=== PATIENT | female | born 1975 ===

== ENCOUNTER 2017-10-25 01:20 | Observation (INO) | payer MEDICAID, OTHER ==
--- NOTE | 2017-10-25 01:36 | C.PDOC ---
History Of Present Illness 42 year old female with PMHx of vertigo presents to the ED for evaluation of a sudden onset of dizziness since last night. Patient reports symptoms feel similar to previous vertigo episodes described as a spinning sensation. Patient also reports having several episodes of vomiting. Patient took her antivert at home but was unable to keep it down. Patient c/o of mild headache but denies blurry vision, weakness, numbness, trauma, injury,fall, CP, palpitations, SOB. Time Seen by Provider: 10/25/17 01:32 Chief Complaint (Nursing): Dizziness/Lightheaded History Per: Patient History/Exam Limitations: no limitations Onset/Duration Of Symptoms: Hrs (few), Persistent Current Symptoms Are (Timing): Still Present Associated Symptoms Preceding Syncopal Episode: Vertigo Worse With Change In Head Position Seizure Or Post-ictal Symptoms: None Possible Causative Factor(s): Vertigo Fall Associated With With Symptoms: No Severity: None Recent travel outside of the [place]: No Additional History Per: Patient - Symptoms Of CVA Associated Symptoms: denies: Impaired Speech, Seizure Activity, Decreased Ability To Walk Recent Aspirin Use: No Current Coumadin Use?: No Recent Head Trauma: No Past Medical History Reviewed: Historical Data, Nursing Documentation, Vital Signs Vital Signs: Last Vital Signs Temp 98.4 F 10/25/17 01:36 Pulse 90 10/25/17 06:54 Resp 16 10/25/17 06:54 BP 124/61 10/25/17 06:54 Pulse Ox 98 10/25/17 06:54 - Medical History PMH: HTN Other PMH: vertigo Surgical History: No Surg Hx Family History: States: Unknown Family Hx - Social History Hx Alcohol Use: No Hx Substance Use: No Review Of Systems Constitutional: Negative for: Fever, Chills Eyes: Negative for: Vision Change Cardiovascular: Negative for: Chest Pain, Palpitations Respiratory: Negative for: Shortness of Breath Gastrointestinal: Positive for: Vomiting Skin: Negative for: Rash Neurological: Positive for: Dizziness. Negative for: Headache Physical Exam - Physical Exam Appears: Non-toxic, No Acute Distress Skin: Normal Color, Warm, Dry Head: Atraumatic, Normacephalic, Other (reproducible dizziness with head movements ) Eye(s): bilateral: Normal Inspection, Other (no nystagmus ) Nose: No Discharge Oral Mucosa: Moist Neck: Normal ROM, Supple Chest: Symmetrical Cardiovascular: Rhythm Regular, No Murmur Respiratory: Normal Breath Sounds, No Rales, No Rhonchi, No Wheezing Gastrointestinal/Abdominal: Soft, No Tenderness, No Guarding, No Rebound Extremity: Normal ROM, No Tenderness, No Swelling Neurological/Psych: Oriented x3, Normal Speech, Normal Motor, Normal Sensation Gait: Steady ED Course And Treatment - Laboratory Results Result Diagrams: 10/25/17 01:59 10/25/17 01:59 ECG: Interpreted By Me, Viewed By Me ECG Rhythm: Sinus Rhythm (80), Nonspecific Changes ECG Interpretation: No Acute Changes Interpretation Of ECG: NSR at 80 O2 Sat by Pulse Oximetry: 98 (ON RA) Pulse Ox Interpretation: Normal - CT Scan/US CT Head Other Rad Studies (CT/US): Read By Radiologist, Radiology Report Reviewed CT/US Interpretation: IMPRESSION: 1. Serpentine hyperdensity within left parietal region, indeterminate significance. Subarachnoid. hemorrhage not entirely excluded. Compare with prior examinations if available. Thank you for allowing us to participate in the care of your patient. Dictated and Authenticated by: Cuate Zurita MD. 10/25/2017 4:49 AM Eastern Time ([place] & [place]) Progress Note: Plan: - Labs. - EKG. - Antivert 50 mg PO. - IV fluids. - Zofran 4 mg IVP. Patient is currently sleeping with stable vitals. On reeval pt is unable to tolerate PO fluids and recurring vertigo when sitting. zofran IV ( 2nd dose) and Head CT ordered. Spoke with Dr Ovalles- neurosurg, advised MRI of brain and can be consulted after. Case presented to Dr Munoz for admission Reevaluation Time: 05:20 Reassessment Condition: Unchanged Disposition - Disposition Disposition Time: 07:19 Condition: STABLE - Clinical Impression Clinical Impression: Dizziness, Intractable vomiting - PA / COURT ADMINISTRATOR / Resident Statement MD/DO has reviewed & agrees with the documentation as recorded. - Scribe Statement The provider has reviewed the documentation as recorded by the Scribe Naresh Huynh All medical record entries made by the Scribe were at my direction and personally dictated by me. I have reviewed the chart and agree that the record accurately reflects my personal performance of the history, physical exam, medical decision making, and the department course for this patient. I have also personally directed, reviewed, and agree with the discharge instructions and disposition.
[2017-10-25] MEDS ORDERED: Sodium Chloride 0.9% 1,000 ML IV ONE (01:45)
[2017-10-25] MEDS ORDERED: Sodium Chloride 0.9% 1,000 ML ONE (01:53)
[2017-10-25 02:04] LABS: BASO % 0.3 % (0.0-2.0); EOS # 0.1 K/uL (0.0-0.7); HEMOGLOBIN 11.8 g/dL (11.0-16.0); LYMPH # 1.6 K/uL (1.0-4.3); LYMPH % 12.8 % (20.0-40.0); MEAN CELL VOLUME 87.5 fL (81.0-99.0); MEAN CORPUSCULAR HEMOGLOBIN 29.4 pg (27.0-31.0); MEAN CORPUSCULAR HGB CONC 33.6 g/dL (33.0-37.0); MEAN PLATELET VOLUME 8.4 fL (7.2-11.7); MONO # 0.3 K/uL (0.0-0.8); MONO % 2.5 % (0.0-10.0); NEUT # 10.1 K/uL (1.8-7.0); NEUT % 83.4 % (50.0-75.0); RED CELL DISTRIBUTION WIDTH 13.7 % (11.5-14.5); WHITE BLOOD COUNT 12.2 K/uL (4.8-10.8)
[2017-10-25 02:17] LABS: ALB/GLOB RATIO 1.1 (1.0-2.1); ALBUMIN 4.1 g/dL (3.5-5.0); ALT/SGPT 23 U/L (9-52); AST/SGOT 20 U/L (14-36); BLOOD UREA NITROGEN 14 mg/dL (7-17); CALCIUM 9.5 mg/dl (8.6-10.4); GFR AFRICAN-AMERICAN > 60; GFR NON-AFRICAN AMERICAN > 60
--- NOTE | 2017-10-25 04:49 | CT ---
EXAM: CT Head Without Intravenous Contrast CLINICAL HISTORY: 42 years old, female; Signs and symptoms; Dizziness; Additional info: Dizziness, vomiting TECHNIQUE: Axial computed tomography images of the head/brain without intravenous contrast. All CT scans at this facility use one or more dose reduction techniques, viz.: automated exposure control; ma/kV adjustment per patient size (including targeted exams where dose is matched to indication; i.e. head); or iterative reconstruction technique. Coronal and sagittal reformatted images were created and reviewed. COMPARISON: No relevant prior studies available. FINDINGS: Limitations: Streak artifact - mild. Brain: Serpentine hyperdensity within left parietal region (coronal image [id number]). No mass. No definite edema. Ventricles: No hydrocephalus. Bones/joints: No acute fracture. Soft tissues: Unremarkable. Sinuses: No acute sinusitis. Mastoid air cells: No mastoid effusion. Orbits: Unremarkable as visualized. IMPRESSION: 1. Serpentine hyperdensity within left parietal region, indeterminate significance. Subarachnoid hemorrhage not entirely excluded. Compare with prior examinations if available.
[2017-10-25] MEDS ORDERED: Glucagon Recombinant 1 mg Inj IM PRN (09:19)
[2017-10-25] MEDS ORDERED: Dextrose 50% SYRINGE Inj (50 ml) IV PRN (09:19)
--- NOTE | 2017-10-25 09:26 | CP.PCM.HP ---
<Jacquie FranceSaima - Last Filed: 10/25/17 16:45> History of Present Illness - History of Present Illness History of Present Illness: CC: dizziness and vomiting 42 year old Martiniquais female with past medical history of vertigo, type 2 diabetes, hypothyroidism, iron deficiency anemia, and hypertension presents to the ER with dizziness. Patient states yesterday afternoon she had a bitemporal and occipital headache. She took two advil and the headache went away. Later that day, the patient states she became dizzy beginning at 10:30 pm after she ate dinner. Patient states she was sitting watching TV when the dizziness started. She does not note any inciting events, falls, or trauma. Patient states she then began to vomit which consisted at first of her food and later progressed to "just yellow." In the end the patient states she vomited 13 times since 1030 pm last night which concerned her and her causing them to come to the ER. Patient had been prescribed antivert by her primary care physician, Dr. Navi Sears, over a year ago. Patient took one pill during the dizzy spell but could not keep the pill down due to recurrent emesis. Patient states sudden movements and standing up makes the dizziness worse, while laying down and eating food makes the dizziness better. Patient's first episode of vertigo occured 13 years ago after second child . Patient states dizzy spells are fairly common for her occuring "once a month." states patient usually vomits once or twice, then eats something and goes to sleep and resulting in the patients return to baseline in the morning. Patient denies neck stiffness, back pain, numbness/tingling, or loss of consciousness. Patient states she drinks only 1 cup of water each day. Although patient and who is bedside spoke Syrian, obtaining a history was difficult due to patient being a poor historian. PMD: Dr. 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 Medications: antivert 25 mg po PRN, levothyroxine 100mcg po morning, glimepride 4mg po morning, sitagliptin 100mg po HS, Iron supplement 10mg BID after breakfast and dinner, propanolol 60 mg po HS, losartan 25mg po morning, protonix 40mg po morning, vitamin d D3 5000 unit PO morning Social: patient denies current or past tobacco use, alcohol use, or recreational drug use. Patient lives with her and child. 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 FDLMP: october 08 2017 Present on Admission - Present on Admission Any Indicators Present on Admission: No History of DVT/PE: No History of Uncontrolled Diabetes: No Urinary Catheter: No Decubitus Ulcer Present: No Review of Systems - Constitutional Constitutional: absent: Anorexia, Chills, Fever - EENT Eyes: Requires Corrective Lenses. absent: Blurred Vision, Change in Vision, Diplopia Ears: Dizziness. absent: Decreased Hearing, Ear Pain, Tinnitus, Abnormal Hearing Nose/Mouth/Throat: absent: Nasal Congestion, Sore Throat, Neck Pain - Cardiovascular Cardiovascular: Palpitations. absent: Chest Pain, Dyspnea, Leg Edema - Respiratory Respiratory: absent: Cough, Dyspnea, Dyspnea on Exertion, Wheezing, Stridor, Chest Congestion - Gastrointestinal Gastrointestinal: absent: Abdominal Pain, Constipation, Diarrhea, Melena, Nausea , Vomiting - Genitourinary Genitourinary: absent: Dysuria, Flank Pain, Hematuria, Urinary Frequency, Urinary Urgency - Musculoskeletal Musculoskeletal: absent: Abnormal Gait, Muscle Weakness, Neck Pain, Numbness, Tingling - Integumentary Integumentary: absent: Rash - Neurological Neurological: Dizziness, Headaches, Vertigo. absent: Numbness, Frequent Falls, Loss of Vision, Syncope, Weakness - Psychiatric Psychiatric: absent: Confusion - Hematologic/Lymphatic Hematologic: absent: Easy Bleeding, Easy Bruising Past Patient History - Past Social History Smoking Status: Never Smoked - CARDIAC Hx Hypertension: Yes - NEUROLOGICAL Hx Dizziness: Yes - ENDOCRINE/METABOLIC Hx Diabetes Mellitus Type 2: Yes - PSYCHIATRIC Hx Substance Use: No Meds Allergies/Adverse Reactions: Allergies Allergy/AdvReac Type Severity Reaction Status Date / Time No Known Allergies Allergy Verified 10/25/17 01:30 Physical Exam - Constitutional Appears: Non-toxic, No Acute Distress - Head Exam Head Exam: ATRAUMATIC, NORMAL INSPECTION, NORMOCEPHALIC - Eye Exam Eye Exam: EOMI, Normal appearance, PERRL Pupil Exam: NORMAL ACCOMODATION, PERRL Additional comments: no blood in vitreous humor - ENT Exam ENT Exam: Mucous Membranes Moist, Normal Oropharynx - Neck Exam Neck exam: Positive for: Normal Inspection. Negative for: Lymphadenopathy, Meningismus, Tenderness, Thyromegaly - Respiratory Exam Respiratory Exam: Clear to Auscultation Bilateral, NORMAL BREATHING PATTERN. absent: Rales, Rhonchi, Wheezes, Respiratory Distress, Stridor - Cardiovascular Exam Cardiovascular Exam: REGULAR RHYTHM, RRR, +S1, +S2, Systolic Murmur. absent: Diastolic murmur, Gallop, Rubs Additional comments: 2/6 systolic ejection murmur - GI/Abdominal Exam GI & Abdominal Exam: Normal Bowel Sounds, Soft. absent: Distended, Firm, Guarding, Tenderness - Extremities Exam Extremities exam: Positive for: full ROM, normal inspection. Negative for: pedal edema, tenderness Additional comments: decreased strength in LUE 4/5. pain to palpation of lateral aspect of thumb on left hand - Back Exam Back exam: NORMAL INSPECTION - Neurological Exam Neurological exam: Alert, CN II-XII Intact, Oriented x3 - Expanded Neurological Exam Expanded Patient oriented to: person, place, time Speech: Fluid Speech Cranial nerves: EOM's Intact: Normal, Facial Palsey w/Forehead Movement: Normal , Facial Palsey w/o Forehead Movement: Normal, Facial Sensation: Normal Ataxia: No Cerebellar Function: Romberg: Normal Upper motor neuron: Babinski Sign: Normal, Pronator Drift: Normal, Sensory Extinction: Normal Neuro motor strength exam: Left Upper Extremity: 4, Right Upper Extremity: 5, Left Lower Extremity: 5, Right Lower Extremity: 5 DTR: Achilles Tendon Left: 1+, Achilles Tendon Right: 1+, Bicep Left: 1+, Bicep Right: 1+, Patellar Left: 1+, Patellar Right: 1+ Coma Scale Eye Opening: SPONTANEOUS Coma Scale Motor Response: OBEYS COMMANDS Coma Scale Verbal: Oriented Coma Scale Total: 15 - Psychiatric Exam Psychiatric exam: Normal Affect, Normal Mood - Skin Skin Exam: Intact, Normal Color, Warm Results - Vital Signs Recent Vital Signs: Last Vital Signs Temp 98 F 10/25/17 08:23 Pulse 76 04/16/18 08:23 Resp 20 10/25/17 08:23 BP 107/68 10/25/17 08:23 Pulse Ox 98 10/25/17 08:23 - Labs Result Diagrams: 10/25/17 01:59 10/25/17 01:59 Labs: Laboratory Results - last 24 hr 10/25/17 10/25/17 10/25/17 01:28 01:59 01:59 WBC 12.2 H RBC 4.00 Hgb 11.8 Hct 35.1 MCV 87.5 MCH 29.4 MCHC 33.6 RDW 13.7 Plt Count 272 MPV 8.4 Neut % (Auto) 83.4 H Lymph % (Auto) 12.8 L [place] % (Auto) 2.5 Eos % (Auto) 1.0 Baso % (Auto) 0.3 Neut # (Auto) 10.1 H Lymph # (Auto) 1.6 [place] # (Auto) 0.3 Eos # (Auto) 0.1 Baso # (Auto) 0.0 Sodium 137 Potassium 4.4 Chloride 101 Carbon Dioxide 23 Anion Gap 18 BUN 14 Creatinine 0.5 L Est GFR ( Amer) > 60 Est GFR (Non-Af Amer) > 60 POC Glucose (mg/dL) 209 H Random Glucose 220 H Calcium 9.5 Total Bilirubin 0.5 AST 20 ALT 23 Alkaline Phosphatase 75 Total Protein 7.7 Albumin 4.1 Globulin 3.6 Albumin/Globulin Ratio 1.1 10/25/17 07:26 WBC RBC Hgb Hct MCV MCH MCHC RDW Plt Count MPV Neut % (Auto) Lymph % (Auto) [place] % (Auto) Eos % (Auto) Baso % (Auto) Neut # (Auto) Lymph # (Auto) [place] # (Auto) Eos # (Auto) Baso # (Auto) Sodium Potassium Chloride Carbon Dioxide Anion Gap BUN Creatinine Est GFR ( Amer) Est GFR (Non-Af Amer) POC Glucose (mg/dL) 130 H Random Glucose Calcium Total Bilirubin AST ALT Alkaline Phosphatase Total Protein Albumin Globulin Albumin/Globulin Ratio Assessment & Plan - Assessment and Plan (Free Text) Assessment: Vertigo continue to monitor zofran 4mg q6h PT f/u RPR f/u ECHO R/O Subarachnoid Hemorrhage CT: serpentine hyperdensity within L parietal region, indeterminate significance repeat CT: questionable small venous angioma in the left parietal region. 2nd small venous angioma in the right posterior frontoparietal not excluded CTA head and neck: possible tortuous vessel versus a small aneurysm left MCA trifurcation. Suspect a small venous angiomas within the left posterior superior parietal and right posterior frontal regions. MRA of brain and pre- and post contrast MRI ordered as recommended for further evaluation neuro consulted, Dr. Diamond, help appreciated no meningeal signs pro BNP: 77.1 Leukocytosis with left shift 2/2 nausea/vomiting vitals and orthostatics q6h negative Flu DMII continue home medications: * Glimepiride 4mg po ACB * Januvia 100mg po daily insulin sliding scale- low accuchecks ACHS hypoglycemia protocol Hypothyroidism continue home medications: * Synthroid 100mcg daily TSH: 1.77 free T4: 1.65 HTN continue home medications: * Losartan 25mg po daily * Propranolol HCL 60mg po daily Iron deficiency * hold iron due to nausea/ vomiting iron: 95 TIBC: 366 %sat: 25 Ferritin 125 patient follows up with hematology, Dr. Renner- next appointment in December/January Prophylaxis DVT score of 1 for age, SCDs Protonix 40mg po daily Full liquid diet, moderate consistent, low sodium <Dwight De La Cruz - Last Filed: 10/25/17 18:36> Results - Vital Signs Recent Vital Signs: Last Vital Signs Temp 98.3 F 10/25/17 16:45 Pulse 76 10/25/17 16:45 Resp 20 10/25/17 16:45 BP 121/85 10/25/17 16:45 Pulse Ox 96 10/25/17 16:45 - Labs Result Diagrams: 10/25/17 01:59 10/25/17 01:59 Labs: Laboratory Results - last 24 hr 10/25/17 10/25/17 10/25/17 01:28 01:59 01:59 WBC 12.2 H RBC 4.00 Hgb 11.8 Hct 35.1 MCV 87.5 MCH 29.4 MCHC 33.6 RDW 13.7 Plt Count 272 MPV 8.4 Neut % (Auto) 83.4 H Lymph % (Auto) 12.8 L [place] % (Auto) 2.5 Eos % (Auto) 1.0 Baso % (Auto) 0.3 Neut # (Auto) 10.1 H Lymph # (Auto) 1.6 [place] # (Auto) 0.3 Eos # (Auto) 0.1 Baso # (Auto) 0.0 Sodium 137 Potassium 4.4 Chloride 101 Carbon Dioxide 23 Anion Gap 18 BUN 14 Creatinine 0.5 L Est GFR ( Amer) > 60 Est GFR (Non-Af Amer) > 60 POC Glucose (mg/dL) 209 H Random Glucose 220 H Calcium 9.5 Iron TIBC % Saturation Ferritin Total Bilirubin 0.5 AST 20 ALT 23 Alkaline Phosphatase 75 Troponin I NT-Pro-B Natriuret Pep Total Protein 7.7 Albumin 4.1 Globulin 3.6 Albumin/Globulin Ratio 1.1 Free T4 TSH 3rd Generation Urine HCG, Qual RPR Influenza Typ A,B (EIA) 10/25/17 10/25/17 10/25/17 07:26 09:05 10:01 WBC RBC Hgb Hct MCV MCH MCHC RDW Plt Count MPV Neut % (Auto) Lymph % (Auto) [place] % (Auto) Eos % (Auto) Baso % (Auto) Neut # (Auto) Lymph # (Auto) [place] # (Auto) Eos # (Auto) Baso # (Auto) Sodium Potassium Chloride Carbon Dioxide Anion Gap BUN Creatinine Est GFR ( Amer) Est GFR (Non-Af Amer) POC Glucose (mg/dL) 130 H Random Glucose Calcium Iron TIBC % Saturation Ferritin 125.0 Total Bilirubin AST ALT Alkaline Phosphatase Troponin I < 0.0120 NT-Pro-B Natriuret Pep 77.1 Total Protein Albumin Globulin Albumin/Globulin Ratio Free T4 TSH 3rd Generation 1.77 Urine HCG, Qual RPR Influenza Typ A,B (EIA) Negative for flu a/b 10/25/17 10/25/17 10/25/17 10:01 10:01 10:01 WBC RBC Hgb Hct MCV MCH MCHC RDW Plt Count MPV Neut % (Auto) Lymph % (Auto) [place] % (Auto) Eos % (Auto) Baso % (Auto) Neut # (Auto) Lymph # (Auto) [place] # (Auto) Eos # (Auto) Baso # (Auto) Sodium Potassium Chloride Carbon Dioxide Anion Gap BUN Creatinine Est GFR ( Amer) Est GFR (Non-Af Amer) POC Glucose (mg/dL) Random Glucose Calcium Iron 95 TIBC 372 366 % Saturation 26 25 Ferritin Total Bilirubin AST ALT Alkaline Phosphatase Troponin I NT-Pro-B Natriuret Pep Total Protein Albumin Globulin Albumin/Globulin Ratio Free T4 1.65 TSH 3rd Generation Urine HCG, Qual RPR Influenza Typ A,B (EIA) 10/25/17 10/25/17 10/25/17 10:01 11:03 11:09 WBC RBC Hgb Hct MCV MCH MCHC RDW Plt Count MPV Neut % (Auto) Lymph % (Auto) [place] % (Auto) Eos % (Auto) Baso % (Auto) Neut # (Auto) Lymph # (Auto) [place] # (Auto) Eos # (Auto) Baso # (Auto) Sodium Potassium Chloride Carbon Dioxide Anion Gap BUN Creatinine Est GFR ( Amer) Est GFR (Non-Af Amer) POC Glucose (mg/dL) 141 H Random Glucose Calcium Iron TIBC % Saturation Ferritin Total Bilirubin AST ALT Alkaline Phosphatase Troponin I NT-Pro-B Natriuret Pep Total Protein Albumin Globulin Albumin/Globulin Ratio Free T4 TSH 3rd Generation Urine HCG, Qual Negative RPR Nonreactive Influenza Typ A,B (EIA) Attending/Attestation - Attestation I have personally seen and examined this patient.: Yes I have fully participated in the care of the patient.: Yes I have reviewed all pertinent clinical information: Yes Notes (Text): 10/25/17 18:33 Patient was seen and examined shortly after resident. History, physical, assessment and plan were gone over with the resident. Please note my neurology exam was uremarkable: 5/5 strength bilateral UE and LE 2/4/ DTR bilateral UE and LE Rhomberg normal Babinski normal Fungoscopic exam (limited by no dilating agent) was normal F/U MRI Brain pre and post and MRA without contrast F/U 2D Echocardiogram Dwight De La Cruz D.O.
[2017-10-25] MEDS ORDERED: Propranolol 60 mg ER Cap PO SCH ×2 (10:00→10:34)
[2017-10-25] MEDS: Sodium Chloride 0.9% 1,000 ML IV SCH ×2 (10:20→22:01)
[2017-10-25] MEDS: Levothyroxine 100 MCG TAB PO SCH (10:20)
[2017-10-25] MEDS: Pantoprazole 40 mg EC Tab PO SCH (10:20)
[2017-10-25 10:25] LABS: IRON 95 ug/dL (37-170)
[2017-10-25 10:33] LABS: % IRON SATURATION 26 (20-55); TOTAL IRON BINDING CAPACITY 372 ug/dL (250-450)
[2017-10-25 10:34] LABS: % IRON SATURATION 25 (20-55); TOTAL IRON BINDING CAPACITY 366 ug/dL (250-450)
[2017-10-25 10:42] LABS: B-TYPE NATRIURETIC PEPTIDE 77.1 pg/mL (0-450)
--- NOTE | 2017-10-25 11:12 | CP.PCM.PN ---
Subjective - Date & Time of Evaluation Date of Evaluation: 10/25/17 Time of Evaluation: 11:11 - Subjective Subjective: if mri shows definitive lesion put official consult in Objective - Vital Signs/Intake and Output Vital Signs (last 24 hours): Temp Pulse Resp BP Pulse Ox 98 F 76 20 107/68 98 10/25/17 08:23 10/25/17 08:23 10/25/17 08:23 10/25/17 08:23 10/25/17 08:23 - Medications Medications: Current Medications Dextrose (Dextrose 50% Inj) 0 ml IV STAT PRN; Protocol PRN Reason: Hypoglycemia Protocol Dextrose (Glutose 15) 0 gm PO ONCE PRN; Protocol PRN Reason: Hypoglycemia Protocol Glimepiride (Amaryl) 4 mg PO ACB [facility] Last Admin: 10/25/17 10:20 Dose: 4 mg Glucagon (Glucagen Diagnostic Kit) 0 mg IM STAT PRN; Protocol PRN Reason: Hypoglycemia Protocol Dextrose (Dextrose 5% In Water 1000 Ml) 1,000 mls @ 0 mls/hr IV .Q0M PRN; Protocol; Per Protocol PRN Reason: Hypoglycemia Protocol Sodium Chloride (Sodium Chloride 0.9%) 1,000 mls @ 75 mls/hr IV .[id number] [facility] Last Admin: 10/25/17 10:20 Dose: 75 mls/hr Insulin Human Regular (Novolin R) 0 unit SC ACHS [facility] PRN Reason: Protocol Levothyroxine Sodium (Synthroid) 100 mcg PO DAILY@0630 [facility] Last Admin: 10/25/17 10:20 Dose: 100 mcg Losartan Potassium (Cozaar) 25 mg PO DAILY@1400 [facility] Ondansetron HCl (Zofran Inj) 4 mg IVP Q6H [facility] Last Admin: 10/25/17 10:36 Dose: 4 mg Pantoprazole Sodium (Protonix Ec Tab) 40 mg PO DAILY [facility] Last Admin: 10/25/17 10:20 Dose: 40 mg Pneumococcal Polyvalent Vaccine (Pneumovax 23 Vaccine) 0.5 ml IM .ONCE ONE Stop: 10/27/17 10:01 Propranolol HCl (Inderal La) 60 mg PO DAILY [facility] Sitagliptin Phosphate (Januvia) 100 mg PO DAILY [facility] Last Admin: 10/25/17 10:20 Dose: 100 mg - Labs Labs: 10/25/17 01:59 10/25/17 01:59
[2017-10-25] MEDS ORDERED: Iodixanol 320 MG/ML 100 ML BOTTLE IV ONE (11:46)
[2017-10-25] MEDS: (Novolin R) Insulin Human Regular 100 units/ml vial SC SCH ×3 (12:30→21:05)
--- NOTE | 2017-10-25 13:27 | CT ---
PROCEDURE: CT HEAD WITHOUT CONTRAST. HISTORY: Dizziness and vomiting. Rule out subarachnoid hemorrhage COMPARISON: Comparison made with prior study dated 10/25/2017 at 0425 hours. Comparison also made with prior CT scan of the brain dated 02/17/2014 TECHNIQUE: Axial computed tomography images were obtained through the head/brain without intravenous contrast. Radiation dose: Total exam DLP = 1026.68 mGy-cm. This CT exam was performed using one or more of the following dose reduction techniques: Automated exposure control, adjustment of the mA and/or kV according to patient size, and/or use of iterative reconstruction technique. FINDINGS: HEMORRHAGE: Re- demonstrated is a serpentine focus of increased attenuation in the left parietal subcortical region near the vertex could represent a venous angioma. . There is another somewhat serpiginous focus of increased attenuation in the right posterior frontal subcortical region that may represent cortical draining vein however a 2nd venous angioma not excluded. No definitive CT evidence of acute parenchymal, subarachnoid or extra-axial hemorrhage. BRAIN: No mass effect or edema. No atrophy or chronic microvascular ischemic changes. VENTRICLES: No obstructive hydrocephalus. CALVARIUM: There are no acute calvarial fractures. PARANASAL SINUSES: Unremarkable as visualized. No significant inflammatory changes. MASTOID AIR CELLS: Unremarkable as visualized. No inflammatory changes. OTHER FINDINGS: None. IMPRESSION: Questionable small venous angioma in the left parietal region. . A 2nd small venous angioma in the right posterior frontoparietal not excluded as detailed above. Followup pre and post-contrast MRI of the recommended.
--- NOTE | 2017-10-25 13:33 | CT ---
PROCEDURE: CT Angiography of the neck and brain dated 10/25/2017. HISTORY: Dizziness and vomiting. COMPARISON: Comparison made with concurrent CT scan brain TECHNIQUE: Contiguous helical/transaxial images of the neck and brain were obtained from the level of the skull-base to the superior mediastinum in the arteriographic phase of enhancement. Coronal and sagittal reformats or also generated. IV contrast dose: 100 cc Visipaque 320 Radiation Dose - DLP: 584.76 mGy-cm This CT exam was performed using one or more of the following dose reduction techniques: Automated exposure control, adjustment of the mA and/or kV according to patient size, and/or use of iterative reconstruction technique. . FINDINGS: The visualized portions of the thoracic aorta are widely patent with no evidence of occlusion. Some minor partially calcified atherosclerotic plaque seen along the left inferolateral margin of the transverse portion of the aortic arch. Right brachiocephalic and left common carotid artery arise from a common trunk. The common carotid arteries, carotid bifurcations and internal carotid arteries including the petrous cavernous and supraclinoid segments widely patent without evidence of occlusion dissection or significant stenosis. Both vertebral arteries are patent throughout left-sided which is slightly larger in caliber/more dominant than the right side with no evidence of occlusion, dissection or significant stenosis. Basilar artery patent. The visualized major branches of the [place] of [place] are patent with no occlusion. The distal anterior middle and posterior cerebral artery branches are widely patent and relatively symmetric. Note is made however of what could represent either a tortuous branch vessel in the left lateral fissure at the level of the left MCA trifurcation versus a tiny approximately 3 8 mm aneurysm. . Previously suspected small venous angioma left posterior parietal region and possibly a 2nd in the right posterior frontal subcortical region not appreciated on this study however a post-contrast MRI as indicated above the should suffice to confirm or exclude the presence of small venous angiomas. Recommend MRA of the brain and pre and post-contrast MRI of the brain for further evaluation. IMPRESSION: Possible tortuous vessel versus a small aneurysm left MCA trifurcation. Suspect a small venous angiomas within the left posterior superior parietal and right posterior frontal regions. Followup of MRA of the brain and pre and post-contrast MRI of the brain recommended for further evaluation. Findings discussed with Dr. De La Cruz at approximately 1:30 p.m. with written down and read back verification.
[2017-10-25] MEDS ORDERED: Gadodiamide 287 MG/ML VIAL (15ML) IV ONE (16:13)
--- NOTE | 2017-10-25 17:44 | MRI ---
PROCEDURE: MR Angiography of the neck without contrast HISTORY: Rule out aneurysm COMPARISON: Correlation made with CTA of the neck and brain earlier same day TECHNIQUE: 3D [id number] angiography of the neck was performed. Rotating maximum intensity projection images of the cervical carotid and vertebral arteries were generated. The origins of the common carotid arteries were not visualized, which is a limitation inherent to the non-contrast time of flight technique. FINDINGS: RIGHT CAROTID ARTERIES: Common Carotid Artery: Normal. Carotid Bifurcation: Normal. Internal Carotid Artery:Normal. External Carotid Artery (proximal branches): Normal. LEFT CAROTID ARTERIES: Common Carotid Artery: Normal. Carotid Bifurcation: Normal. Internal Carotid Artery:Normal. External Carotid Artery (proximal branches): Normal. VERTEBRAL ARTERIES: The right left vertebral arteries are patent throughout all. There is some minimal asymmetry of the vertebral arteries left-sided which is slightly larger in caliber/more dominant than the right side. OTHER FINDINGS: None. IMPRESSION: Normal MR Angiography of the neck.
--- NOTE | 2017-10-25 18:35 | MRI ---
PROCEDURE: MRI of the brain dated 10/25/2017. HISTORY: Rule out aneurysm. COMPARISON: Comparison made with prior CT scan of the brain earlier same day. TECHNIQUE: Multiplanar, multisequence MR images of the brain were obtained with and without intravenous contrast enhancement. FINDINGS: HEMORRHAGE: The current study reveals no evidence of acute parenchymal, subarachnoid or extra-axial hemorrhage. No evidence of hemosiderin deposition identified on gradient echo weighted sequence. DWI: No evidence of an acute or early subacute infarction seen on diffusion imaging. BRAIN PARENCHYMA: There are no enhancing parenchymal nor extra-axial masses or collections seen. No evidence of unusual meningeal enhancement. There appears to be localized fusiform type dilatation of the distal of left MCA branch within the left the sylvian fissure with some tortuosity of the vessel at this level is well. These findings are of uncertain etiology though the possibility of a localized on dilatation due to vasculitis or possibly small AVM or small AV fistula must be excluded. Formal four-vessel catheter cerebral angiogram on may ultimately be required for definitive diagnosis. ENHANCEMENT: No abnormal intracranial enhancement as above. . VENTRICLES: No obstructive hydrocephalus CRANIUM: Calvarium appears intact ORBITS: Orbits and contents unremarkable. PARANASAL SINUSES/MASTOIDS: Clear VASCULAR SYSTEM: Visualized major vascular flow voids at skull base patent. OTHER FINDINGS: None . IMPRESSION: No acute intracranial hemorrhage or infarct. Apparent fusiform dilatation of the distal branch of the left MCA at the level of the trifurcation extending into the sylvian fissure with apparent tortuosity of the vessel as well. Findings are of uncertain etiology though rule out vasculitis; rule out small AVM or small AV fistula . Formal four-vessel catheter cerebral angiogram may ultimately be required for definitive diagnosis.
--- NOTE | 2017-10-25 18:36 | CP.PCM.CON ---
History of Present Illness - History of Present Illness History of Present Illness: Mrs. Ray is a 42-year-old woman with a past medical history of vertigo, DM, hypothyroidism, iron deficiency anemia, and hypertension who presented to the ED with complaints of headache and dizziness. The headache was located in the occipital region and radiated to the bitemporal regions. After the headache started yesterday, she began having dizziness along with nausea and vomiting. She usually takes meclizine for vertigo, and she tried taking it this time, but it was not helping. In the ED, a non-contrast CT scan of the head was done that was concerning for an abnormal vessel and this was confirmed with CTA of the head/neck. This was thought to be a possible time left MCA trifurcation aneurysm. There were several small associated angiomas as well. MRI with contrast was recommended. Currently, the patient is asymptomatic and denied headache or vertigo. Review of Systems - Review of Systems All systems: reviewed and no additional remarkable complaints except Past Patient History - Past Social History Smoking Status: Never Smoked - CARDIAC Hx Hypertension: Yes - NEUROLOGICAL Hx Dizziness: Yes - ENDOCRINE/METABOLIC Hx Diabetes Mellitus Type 2: Yes - PSYCHIATRIC Hx Substance Use: No Meds Allergies/Adverse Reactions: Allergies Allergy/AdvReac Type Severity Reaction Status Date / Time No Known Allergies Allergy Verified 10/25/17 01:30 - Medications Medications: Current Medications Dextrose (Dextrose 50% Inj) 0 ml IV STAT PRN; Protocol PRN Reason: Hypoglycemia Protocol Dextrose (Glutose 15) 0 gm PO ONCE PRN; Protocol PRN Reason: Hypoglycemia Protocol Glimepiride (Amaryl) 4 mg PO ACB [facility] Last Admin: 10/25/17 10:20 Dose: 4 mg Glucagon (Glucagen Diagnostic Kit) 0 mg IM STAT PRN; Protocol PRN Reason: Hypoglycemia Protocol Dextrose (Dextrose 5% In Water 1000 Ml) 1,000 mls @ 0 mls/hr IV .Q0M PRN; Protocol; Per Protocol PRN Reason: Hypoglycemia Protocol Sodium Chloride (Sodium Chloride 0.9%) 1,000 mls @ 75 mls/hr IV .[id number] [facility] Last Admin: 10/25/17 10:20 Dose: 75 mls/hr Insulin Human Regular (Novolin R) 0 unit SC ACHS [facility] PRN Reason: Protocol Last Admin: 10/25/17 17:34 Dose: Not Given Levothyroxine Sodium (Synthroid) 100 mcg PO DAILY@0630 [facility] Last Admin: 10/25/17 10:20 Dose: 100 mcg Losartan Potassium (Cozaar) 25 mg PO DAILY@1400 [facility] Ondansetron HCl (Zofran Inj) 4 mg IVP Q6H [facility] Last Admin: 10/25/17 10:36 Dose: 4 mg Pantoprazole Sodium (Protonix Ec Tab) 40 mg PO DAILY [facility] Last Admin: 10/25/17 10:20 Dose: 40 mg Pneumococcal Polyvalent Vaccine (Pneumovax 23 Vaccine) 0.5 ml IM .ONCE ONE Stop: 10/27/17 10:01 Propranolol HCl (Inderal La) 60 mg PO HS [facility] Sitagliptin Phosphate (Januvia) 100 mg PO DAILY [facility] Last Admin: 10/25/17 10:20 Dose: 100 mg Physical Exam - Constitutional Appears: Well - Head Exam Head Exam: ATRAUMATIC, NORMAL INSPECTION, NORMOCEPHALIC - Eye Exam Eye Exam: EOMI, Normal appearance, PERRL - ENT Exam ENT Exam: Mucous Membranes Moist, Normal Exam - Cardiovascular Exam Cardiovascular Exam: REGULAR RHYTHM - GI/Abdominal Exam GI & Abdominal Exam: Normal Bowel Sounds, Soft. absent: Tenderness - Rectal Exam Rectal Exam: Deferred - Neurological Exam Neurological exam: Alert, CN II-XII Intact, Normal Gait, Oriented x3, Reflexes Normal Additional comments: No nystagmus, no ataxia, no meningeal signs. Results - Vital Signs Recent Vital Signs: Last Vital Signs Temp 98.3 F 10/25/17 16:45 Pulse 76 10/25/17 16:45 Resp 20 10/25/17 16:45 BP 121/85 10/25/17 16:45 Pulse Ox 96 10/25/17 16:45 - Labs Result Diagrams: 10/25/17 01:59 10/25/17 01:59 Labs: Laboratory Results - last 24 hr 10/25/17 10/25/17 10/25/17 01:28 01:59 01:59 WBC 12.2 H RBC 4.00 Hgb 11.8 Hct 35.1 MCV 87.5 MCH 29.4 MCHC 33.6 RDW 13.7 Plt Count 272 MPV 8.4 Neut % (Auto) 83.4 H Lymph % (Auto) 12.8 L Cameron % (Auto) 2.5 Eos % (Auto) 1.0 Baso % (Auto) 0.3 Neut # (Auto) 10.1 H Lymph # (Auto) 1.6 Cameron # (Auto) 0.3 Eos # (Auto) 0.1 Baso # (Auto) 0.0 Sodium 137 Potassium 4.4 Chloride 101 Carbon Dioxide 23 Anion Gap 18 BUN 14 Creatinine 0.5 L Est GFR ( Amer) > 60 Est GFR (Non-Af Amer) > 60 POC Glucose (mg/dL) 209 H Random Glucose 220 H Calcium 9.5 Iron TIBC % Saturation Ferritin Total Bilirubin 0.5 AST 20 ALT 23 Alkaline Phosphatase 75 Troponin I NT-Pro-B Natriuret Pep Total Protein 7.7 Albumin 4.1 Globulin 3.6 Albumin/Globulin Ratio 1.1 Free T4 TSH 3rd Generation Urine HCG, Qual RPR Influenza Typ A,B (EIA) 10/25/17 10/25/17 10/25/17 07:26 09:05 10:01 WBC RBC Hgb Hct MCV MCH MCHC RDW Plt Count MPV Neut % (Auto) Lymph % (Auto) Cameron % (Auto) Eos % (Auto) Baso % (Auto) Neut # (Auto) Lymph # (Auto) Cameron # (Auto) Eos # (Auto) Baso # (Auto) Sodium Potassium Chloride Carbon Dioxide Anion Gap BUN Creatinine Est GFR ( Amer) Est GFR (Non-Af Amer) POC Glucose (mg/dL) 130 H Random Glucose Calcium Iron TIBC % Saturation Ferritin 125.0 Total Bilirubin AST ALT Alkaline Phosphatase Troponin I < 0.0120 NT-Pro-B Natriuret Pep 77.1 Total Protein Albumin Globulin Albumin/Globulin Ratio Free T4 TSH 3rd Generation 1.77 Urine HCG, Qual RPR Influenza Typ A,B (EIA) Negative for flu a/b 10/25/17 10/25/17 10/25/17 10:01 10:01 10:01 WBC RBC Hgb Hct MCV MCH MCHC RDW Plt Count MPV Neut % (Auto) Lymph % (Auto) Cameron % (Auto) Eos % (Auto) Baso % (Auto) Neut # (Auto) Lymph # (Auto) Cameron # (Auto) Eos # (Auto) Baso # (Auto) Sodium Potassium Chloride Carbon Dioxide Anion Gap BUN Creatinine Est GFR ( Amer) Est GFR (Non-Af Amer) POC Glucose (mg/dL) Random Glucose Calcium Iron 95 TIBC 372 366 % Saturation 26 25 Ferritin Total Bilirubin AST ALT Alkaline Phosphatase Troponin I NT-Pro-B Natriuret Pep Total Protein Albumin Globulin Albumin/Globulin Ratio Free T4 1.65 TSH 3rd Generation Urine HCG, Qual RPR Influenza Typ A,B (EIA) 10/25/17 10/25/17 10/25/17 10:01 11:03 11:09 WBC RBC Hgb Hct MCV MCH MCHC RDW Plt Count MPV Neut % (Auto) Lymph % (Auto) Cameron % (Auto) Eos % (Auto) Baso % (Auto) Neut # (Auto) Lymph # (Auto) Cameron # (Auto) Eos # (Auto) Baso # (Auto) Sodium Potassium Chloride Carbon Dioxide Anion Gap BUN Creatinine Est GFR ( Amer) Est GFR (Non-Af Amer) POC Glucose (mg/dL) 141 H Random Glucose Calcium Iron TIBC % Saturation Ferritin Total Bilirubin AST ALT Alkaline Phosphatase Troponin I NT-Pro-B Natriuret Pep Total Protein Albumin Globulin Albumin/Globulin Ratio Free T4 TSH 3rd Generation Urine HCG, Qual Negative RPR Nonreactive Influenza Typ A,B (EIA) Assessment & Plan (1) Vertigo Assessment and Plan: If meclizine does not help, start Valium 2 mg Q 12 hours. Will follow MRA results for VBI or other posterior circulation findings. Status: Acute Priority: High (2) Cerebral aneurysm Assessment and Plan: Will evaluate for angiomas or aneurysm of the left hemisphere with MRI and MRA. No intervention is recommended at this time. Status: Acute Priority: Medium
--- NOTE | 2017-10-25 19:08 | MRI ---
PROCEDURE: MRA brain dated 10/25/2017 HISTORY: Dizziness and nausea; rule out aneurysm COMPARISON: None available. TECHNIQUE: 3D time of flight MR angiography of the intracranial arteries was performed. Rotating maximum intensity projection images were generated. FINDINGS: INTERNAL CAROTID ARTERIES: Unremarkable. The skull base, petrous, cavernous and supraclinoid segments are bilaterally widely patient. ANTERIOR CEREBRAL ARTERIES: Unremarkable. A1 and A2 segments are widely patent. Smaller distal branches unremarkable, as visualized. MIDDLE CEREBRAL ARTERIES: There appears to be localized fusiform type dilatation of any distal of left MCA branch at the level of the trifurcation within the left the sylvian fissure associated with some tortuosity of the vessel at this level as well. . These findings are of uncertain etiology though the possibility of a localized dilatation due to vasculitis or possibly small AVM or small AV fistula must be excluded. Formal four-vessel catheter cerebral angiogram on may ultimately be required for definitive diagnosis. POSTERIOR CIRCULATION: Basilar Artery: Unremarkable. Distal Vertebral Arteries: Unremarkable. Posterior Cerebral Arteries: Unremarkable. Posterior Inferior Cerebellar Arteries: Unremarkable. ANEURYSM/ VASCULAR MALFORMATIONS: See above OTHER FINDINGS: None. IMPRESSION: Apparent localized fusiform type dilatation of a distal of left MCA branch at the level of the trifurcation within the left the sylvian fissure with s associated with tortuosity. . These findings are of uncertain etiology though the possibility of a localized dilatation due to vasculitis or possibly small AVM or small AV fistula must be excluded. Formal four-vessel catheter cerebral angiogram on may ultimately be required for definitive diagnosis.
[2017-10-25 23:29] VITALS: PULSE 79; O2SAT 99
--- NOTE | 2017-10-26 01:28 | CARD ---
APPROVED REPORT EXAM: Two-dimensional and M-mode echocardiogram with Doppler and color Doppler. Other Information Quality : GoodRhythm : INDICATION Dizziness and Vertigo Murmur 2D DIMENSIONS IVSd0.9 (0.7-1.1cm)LVDd4.1 (3.9-5.9cm) PWd0.9 (0.7-1.1cm)LVDs2.4 (2.5-4.0cm) FS (%) 41.1 %LVEF (%)72.4 (>50%) M-Mode DIMENSIONS Left Atrium (MM)3.15 (2.5-4.0cm)Aortic Root2.95 (2.2-3.7cm) Aortic Cusp Exc.2.06 (1.5-2.0cm) Mitral Valve MV E Obygjwmu408.7cm/sMV A Pzbdcpix285.5cm/sE/A ratio1.0 TDI E/Lateral E'0.0E/Medial E'0.0 LEFT VENTRICLE The left ventricle is normal size. There is normal left ventricular wall thickness. Left ventricle systolic function is normal. The Ejection Fraction is 65-70%. There is normal LV segmental wall motion. Transmitral Doppler flow pattern is Grade I-abnormal relaxation pattern. There is no ventricular septal defect visualized. RIGHT VENTRICLE The right ventricle is normal size. The right ventricular systolic function is normal. ATRIA The left atrium is mildly dilated. The right atrium size is normal. AORTIC VALVE The aortic valve is mildly sclerotic. The aortic valve is tri-cuspid. No aortic regurgitation is present. There is no aortic valvular stenosis. MITRAL VALVE The mitral valve is normal in structure. There is no evidence of mitral valve prolapse. There is no mitral valve regurgitation noted. TRICUSPID VALVE The tricuspid valve is normal in structure. There is no tricuspid valve regurgitation noted. PULMONIC VALVE The pulmonic valve is not well visualized. There is no pulmonic valvular regurgitation. GREAT VESSELS The aortic root is normal in size. The ascending aorta is normal in size. The IVC is normal in size and collapses >50% with inspiration. PERICARDIAL EFFUSION There is no pericardial effusion. <Conclusion> Left ventricle systolic function is normal. The Ejection Fraction is 65-70%. Transmitral Doppler flow pattern is Grade I-abnormal relaxation pattern.
[2017-10-26] MEDS: Sodium Chloride 0.9% 1,000 ML IV SCH ×2 (04:03→13:00)
[2017-10-26] MEDS: Levothyroxine 100 MCG TAB PO SCH (05:44)
[2017-10-26 07:26] LABS: BASO % 0.5 % (0.0-2.0); EOS # 0.1 K/uL (0.0-0.7); EOS % 1.9 % (0.0-4.0); HEMOGLOBIN 11.4 g/dL (11.0-16.0); LYMPH # 1.9 K/uL (1.0-4.3); LYMPH % 30.5 % (20.0-40.0); MEAN CELL VOLUME 87.6 fL (81.0-99.0); MEAN CORPUSCULAR HEMOGLOBIN 30.2 pg (27.0-31.0); MEAN CORPUSCULAR HGB CONC 34.5 g/dL (33.0-37.0); MEAN PLATELET VOLUME 7.9 fL (7.2-11.7); MONO # 0.3 K/uL (0.0-0.8); MONO % 4.9 % (0.0-10.0); NEUT # 3.8 K/uL (1.8-7.0); NEUT % 62.2 % (50.0-75.0); RBC 3.78 Mil/uL (3.80-5.20); RED CELL DISTRIBUTION WIDTH 13.5 % (11.5-14.5); WHITE BLOOD COUNT 6.1 K/uL (4.8-10.8)
[2017-10-26 08:01] VITALS: BP 125/77; RESP 20; TEMP 98.3
[2017-10-26 08:17] LABS: ALB/GLOB RATIO 1.1 (1.0-2.1); ALBUMIN 3.4 g/dL (3.5-5.0); ALT/SGPT 19 U/L (9-52); AST/SGOT 18 U/L (14-36); BLOOD UREA NITROGEN 9 mg/dL (7-17); GFR AFRICAN-AMERICAN > 60; GFR NON-AFRICAN AMERICAN > 60; HDL CHOLESTEROL 27 mg/dL (30-70)
[2017-10-26 08:21] LABS: LDL CHOLESTEROL 117 mg/dL (0-129)
[2017-10-26] MEDS: (Novolin R) Insulin Human Regular 100 units/ml vial SC SCH ×2 (08:36→12:13)
--- NOTE | 2017-10-26 08:46 | CP.PCM.PN ---
Subjective - Date & Time of Evaluation Date of Evaluation: 10/26/17 Time of Evaluation: 08:45 - Subjective Subjective: reviewed MRI suggest follow up with vascular neurosurgeon electivly post d/c home Objective - Vital Signs/Intake and Output Vital Signs (last 24 hours): Temp Pulse Resp BP Pulse Ox 98.3 F 79 20 125/77 99 10/26/17 07:50 10/26/17 07:50 10/26/17 07:50 10/26/17 07:50 10/26/17 07:50 Intake and Output: 10/26/17 10/26/17 06:59 18:59 Intake Total 1440 Balance 1440 - Medications Medications: Current Medications Dextrose (Dextrose 50% Inj) 0 ml IV STAT PRN; Protocol PRN Reason: Hypoglycemia Protocol Dextrose (Glutose 15) 0 gm PO ONCE PRN; Protocol PRN Reason: Hypoglycemia Protocol Glimepiride (Amaryl) 4 mg PO ACB [facility] Last Admin: 10/25/17 10:20 Dose: 4 mg Glucagon (Glucagen Diagnostic Kit) 0 mg IM STAT PRN; Protocol PRN Reason: Hypoglycemia Protocol Heparin Sodium (Porcine) (Heparin) 5,000 units SC Q12 [facility] Dextrose (Dextrose 5% In Water 1000 Ml) 1,000 mls @ 0 mls/hr IV .Q0M PRN; Protocol; Per Protocol PRN Reason: Hypoglycemia Protocol Sodium Chloride (Sodium Chloride 0.9%) 1,000 mls @ 75 mls/hr IV .[id number] [facility] Last Admin: 10/26/17 04:03 Dose: 75 mls/hr Insulin Human Regular (Novolin R) 0 unit SC ACHS [facility] PRN Reason: Protocol Last Admin: 10/26/17 08:36 Dose: Not Given Levothyroxine Sodium (Synthroid) 100 mcg PO DAILY@0630 [facility] Last Admin: 10/26/17 05:44 Dose: 100 mcg Losartan Potassium (Cozaar) 25 mg PO DAILY@1400 [facility] Ondansetron HCl (Zofran Inj) 4 mg IVP Q6H [facility] Last Admin: 10/26/17 03:50 Dose: 4 mg Pantoprazole Sodium (Protonix Ec Tab) 40 mg PO DAILY [facility] Last Admin: 10/25/17 10:20 Dose: 40 mg Pneumococcal Polyvalent Vaccine (Pneumovax 23 Vaccine) 0.5 ml IM .ONCE ONE Stop: 10/27/17 10:01 Propranolol HCl (Inderal La) 60 mg PO HS [facility] Sitagliptin Phosphate (Januvia) 100 mg PO DAILY [facility] Last Admin: 10/25/17 10:20 Dose: 100 mg - Labs Labs: 10/26/17 07:10 10/26/17 07:10
[2017-10-26] MEDS: Pantoprazole 40 mg EC Tab PO SCH (10:50)
--- NOTE | 2017-10-26 11:25 | CP.PCM.DIS ---
Provider - Provider Date of Admission: 10/25/17 06:40 Attending physician: Vlad Munoz MD Primary care physician: Dr. Radha Grijalva Consults: Dr. Diamond (neuro) Dr. Bauer (neurovascular surgery) Time Spent in preparation of Discharge (in minutes): 40 Diagnosis - Discharge Diagnosis (1) Cerebral aneurysm Status: Acute Priority: Medium Comment: patient to follow up with neurosurg as an outpatient (2) Vertigo Status: Chronic Priority: High Hospital Course - Lab Results Lab Results: Most Recent Lab Values WBC 6.1 K/uL (4.8-10.8) 10/26/17 07:10 RBC 3.78 Mil/uL (3.80-5.20) L 10/26/17 07:10 Hgb 11.4 g/dL (11.0-16.0) 10/26/17 07:10 Hct 33.1 % (34.0-47.0) L 10/26/17 07:10 MCV 87.6 fL (81.0-99.0) 10/26/17 07:10 MCH 30.2 pg (27.0-31.0) 10/26/17 07:10 MCHC 34.5 g/dL (33.0-37.0) 10/26/17 07:10 RDW 13.5 % (11.5-14.5) 10/26/17 07:10 Plt Count 239 K/uL (130-400) 10/26/17 07:10 MPV 7.9 fL (7.2-11.7) 10/26/17 07:10 Neut % (Auto) 62.2 % (50.0-75.0) 10/26/17 07:10 Lymph % (Auto) 30.5 % (20.0-40.0) 10/26/17 07:10 [place] % (Auto) 4.9 % (0.0-10.0) 10/26/17 07:10 Eos % (Auto) 1.9 % (0.0-4.0) 10/26/17 07:10 Baso % (Auto) 0.5 % (0.0-2.0) 10/26/17 07:10 Neut # (Auto) 3.8 K/uL (1.8-7.0) 10/26/17 07:10 Lymph # (Auto) 1.9 K/uL (1.0-4.3) 10/26/17 07:10 [place] # (Auto) 0.3 K/uL (0.0-0.8) 10/26/17 07:10 Eos # (Auto) 0.1 K/uL (0.0-0.7) 10/26/17 07:10 Baso # (Auto) 0.0 K/uL (0.0-0.2) 10/26/17 07:10 Sodium 138 mmol/L (132-148) 10/26/17 07:10 Potassium 3.8 mmol/L (3.6-5.2) 10/26/17 07:10 Chloride 103 mmol/L (98-107) 10/26/17 07:10 Carbon Dioxide 23 mmol/L (22-30) 10/26/17 07:10 Anion Gap 17 (10-20) 10/26/17 07:10 BUN 9 mg/dL (7-17) 10/26/17 07:10 Creatinine 0.5 mg/dL (0.7-1.2) L 10/26/17 07:10 Est GFR ( Amer) > 60 10/26/17 07:10 Est GFR (Non-Af Amer) > 60 10/26/17 07:10 POC Glucose (mg/dL) 95 mg/dL (65-110) 10/26/17 06:53 Random Glucose 96 mg/dL (65-105) 10/26/17 07:10 Hemoglobin A1c 7.0 % (4.2-6.5) H 10/26/17 07:10 Calcium 8.0 mg/dl (8.6-10.4) L 10/26/17 07:10 Phosphorus 4.2 mg/dL (2.5-4.5) 10/26/17 07:10 Magnesium 1.7 mg/dL (1.6-2.3) 10/26/17 07:10 Iron 95 ug/dL (37-170) 10/25/17 10:01 TIBC 366 ug/dL (250-450) 10/25/17 10:01 % Saturation 25 (20-55) 10/25/17 10:01 Ferritin 125.0 ng/mL 10/25/17 10:01 Total Bilirubin 0.5 mg/dL (0.2-1.3) 10/26/17 07:10 AST 18 U/L (14-36) 10/26/17 07:10 ALT 19 U/L (9-52) 10/26/17 07:10 Alkaline Phosphatase 57 U/L (38-126) 10/26/17 07:10 Troponin I < 0.0120 ng/mL (0.00-0.120) 10/25/17 10:01 NT-Pro-B Natriuret Pep 77.1 pg/mL (0-450) 10/25/17 10:01 Total Protein 6.6 g/dL (6.3-8.3) 10/26/17 07:10 Albumin 3.4 g/dL (3.5-5.0) L 10/26/17 07:10 Globulin 3.2 gm/dL (2.2-3.9) 10/26/17 07:10 Albumin/Globulin Ratio 1.1 (1.0-2.1) 10/26/17 07:10 Triglycerides 113 mg/dL (0-149) 10/26/17 07:10 Cholesterol 173 mg/dL (0-199) 10/26/17 07:10 LDL Cholesterol Direct 117 mg/dL (0-129) 10/26/17 07:10 HDL Cholesterol 27 mg/dL (30-70) L 10/26/17 07:10 Free T4 1.65 ng/dL (0.78-2.19) 10/25/17 10:01 TSH 3rd Generation 1.77 mIU/L (0.46-4.68) 10/25/17 10:01 Urine HCG, Qual Negative (NEGATIVE) 10/25/17 10:01 RPR Nonreactive (NONREACTIVE) 10/25/17 11:09 Influenza Typ A,B (EIA) Negative for flu a/b (NEGATIVE) 10/25/17 09:05 - Hospital Course Hospital Course: 42 year old female with past medical history of vertigo, type 2 diabetes, hypothyroidism, iron deficiency anemia and hypertension presented to [facility] with dizziness and 13 episodes of vomiting. Echocardiogram showed normal ejection fraction of 65-70% as well as normal left ventricle systolic function. Head CT without contrast showed serpentine hyperdensity within left parietal region of indeterminate significance and concluded that subarachnoid hemorrhage could not be excluded. Patient was admitted to undergo further study to rule out SAH. Repeat head CT without contrast showed questionable small venous angioma in left parietal region as well as the possibility of a second small venous angioma in the right posterior frontoparietal region with recommendations for pre and post contrast MRI to be conducted. A head and neck CT showed possible tortuous vessel vs. small aneurysm of left MCA trifurcation as well as the aformentioned small venous angiomas with recommendations of MRA of head and neck. MRA of head showed dilatation of distal left MCA branch possibly from vasculitis or small AVM with recommendations for four-vessel catheter cerebral angiogram for definitive diagnosis. Neck MRA was normal. Dr. Diamond from neurology was consulted who reviewed findings of MRI pre and post contrast which concurred directly with the findings of the head MRA. Dr. Diamond recommended to follow up as an outpatient as no intervention is required at this time. Dr. Webber from neurosurgery who concurred with Dr. Diamond and recommended elective vascular neurosurgery follow up once discharged home. While under care at [facility], patient was kept on liquid diet and treated for her chronic conditions as well receiving Amaryl 4mg PO ACB, Januvia 100mg PO daily, Synthroid 100mcg PO daily, Cozaar 25 mg PO daily, Protonix 40mg PO daily, Propranolol 60mg PO HS. Prophylaxis was given by ways of heparin 5000 units SC BID. Patient received pneumovax 23 as well. Upon discharge, patient was no longer dizzy with her last episode of emesis being in the ER prior to admission. Patient was instructed to follow up with Dr. Bauer (vascular neurosurg) as well as her primary care physician, Dr. Nolan for any other concerns she may have. This is a summary of the patient's hospital course, please see chart for details. Discharge Exam - Head Exam Head Exam: NORMAL INSPECTION, NORMOCEPHALIC - Eye Exam Eye Exam: EOMI, Normal appearance Pupil Exam: NORMAL ACCOMODATION, PERRL - ENT Exam ENT Exam: Mucous Membranes Moist - Respiratory Exam Respiratory Exam: Clear to PA & Lateral, NORMAL BREATHING PATTERN. absent: Rales, Rhonchi, Wheezes, Respiratory Distress, Stridor - Cardiovascular Exam Cardiovascular Exam: REGULAR RHYTHM, RRR, +S1, +S2. absent: Gallop, Rubs, Systolic Murmur - GI/Abdominal Exam GI & Abdominal Exam: Normal Bowel Sounds, Soft. absent: Distended, Firm, Tenderness - Back Exam Back exam: NORMAL INSPECTION - Neurological Exam Neurological exam: Alert, CN II-XII Intact, Oriented x3 Discharge Plan - Follow Up Plan Condition: STABLE Disposition: HOME/ ROUTINE Instructions: Vertigo (a Type of Dizziness) (DC), Nausea and Vomiting, Adult ( DC), Brain Aneurysm (DC) Additional Instructions: Patient stable for discharge as per Dr. De La Cruz. Patient to continue home medications. Patient to only take meclizine when needed for dizziness. Patient says she has enough medications to take daily at home until she follows up with her primary care doctor, Dr. Nolan. Patient to follow up with primary doctor within 2 weeks. Patient to also follow up with Dr. Nick Bauer ) within 1 week and his office is located at [address] [place] [address], [address] [place] [address]. Patient explained instructions who understands and agrees. Patient should please return to emergency room if symptoms return. Referrals: Lesvia Elmore MD [Staff Provider] - Quinn Webber MD [Staff Provider] -
--- NOTE | 2017-10-26 12:13 | CP.PCM.PN ---
Subjective - Date & Time of Evaluation Date of Evaluation: 10/26/17 Time of Evaluation: 00:00 - Subjective Subjective: 42 yr old woman who came to Er with dizziness and diaphoresis, who now has lt mca tortuous ,fusiform, dilation of MCA, but no signs/symptoms of stroke. Appreciate consultation. She has no complaints today. on exam: normal neurological examination. Objective - Vital Signs/Intake and Output Vital Signs (last 24 hours): Temp Pulse Resp BP Pulse Ox 98.3 F 79 20 125/77 99 10/26/17 07:50 10/26/17 07:50 10/26/17 07:50 10/26/17 07:50 10/26/17 07:50 Intake and Output: 10/26/17 10/26/17 06:59 18:59 Intake Total 1440 Balance 1440 - Medications Medications: Current Medications Dextrose (Dextrose 50% Inj) 0 ml IV STAT PRN; Protocol PRN Reason: Hypoglycemia Protocol Dextrose (Glutose 15) 0 gm PO ONCE PRN; Protocol PRN Reason: Hypoglycemia Protocol Glimepiride (Amaryl) 4 mg PO ACB [facility] Last Admin: 10/26/17 08:53 Dose: 4 mg Glucagon (Glucagen Diagnostic Kit) 0 mg IM STAT PRN; Protocol PRN Reason: Hypoglycemia Protocol Heparin Sodium (Porcine) (Heparin) 5,000 units SC Q12 [facility] Last Admin: 10/26/17 10:50 Dose: 5,000 units Dextrose (Dextrose 5% In Water 1000 Ml) 1,000 mls @ 0 mls/hr IV .Q0M PRN; Protocol; Per Protocol PRN Reason: Hypoglycemia Protocol Sodium Chloride (Sodium Chloride 0.9%) 1,000 mls @ 75 mls/hr IV .[id number] [facility] Last Admin: 10/26/17 04:03 Dose: 75 mls/hr Insulin Human Regular (Novolin R) 0 unit SC ACHS [facility] PRN Reason: Protocol Last Admin: 10/26/17 08:36 Dose: Not Given Levothyroxine Sodium (Synthroid) 100 mcg PO DAILY@0630 [facility] Last Admin: 10/26/17 05:44 Dose: 100 mcg Losartan Potassium (Cozaar) 25 mg PO DAILY@1400 [facility] Ondansetron HCl (Zofran Inj) 4 mg IVP Q6H [facility] Last Admin: 10/26/17 08:53 Dose: 4 mg Pantoprazole Sodium (Protonix Ec Tab) 40 mg PO DAILY [facility] Last Admin: 10/26/17 10:50 Dose: 40 mg Pneumococcal Polyvalent Vaccine (Pneumovax 23 Vaccine) 0.5 ml IM .ONCE ONE Stop: 10/27/17 10:01 Propranolol HCl (Inderal La) 60 mg PO HS [facility] Sitagliptin Phosphate (Januvia) 100 mg PO DAILY [facility] Last Admin: 10/26/17 10:49 Dose: 100 mg - Labs Labs: 10/26/17 07:10 10/26/17 07:10 Assessment and Plan - Assessment and Plan (Free Text) Assessment: 42 yr old woman with dizziness that was not stroke related but underlying finding of tortuous 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 Plan: 1. Follow up with Cele 2. May be discharged. Dr. Oscar MD, DPn.
--- NOTE | 2017-10-26 12:35 | CARD ---
APPROVED REPORT EKG Measurement Heart [id number] <Conclusion> Normal sinus rhythm Possible Left atrial enlargement Right bundle branch block Abnormal ECG
[2017-10-26] MEDS ORDERED: Pneumococcal 23-Valent Vaccine IM ONE (13:00)
[2017-10-26] MEDS ORDERED: Propranolol 60 mg ER Cap PO SCH (22:00)
[2017-10-27] MEDS ORDERED: Pneumococcal 23-Valent Vaccine IM ONE (10:00)
== END 2017-10-26 15:35 | disposition home or self-care (01) ==
LOC: C.ER 01:20 → C.3T 06:40
PROVIDERS: ADMIT Family Medicine; ATTEND Family Medicine
DX: I67.1 Cerebral aneurysm, nonruptured (principal); R42 Dizziness and giddiness; I10 Essential (primary) hypertension; E11.9 Type 2 diabetes mellitus without complications; E03.9 Hypothyroidism, unspecified; D50.9 Iron deficiency anemia, unspecified; R11.2 Nausea with vomiting, unspecified; Z82.49 Family history of ischemic heart disease and other diseases of the circulatory system; Z79.84 Long term (current) use of oral hypoglycemic drugs; D72.829 Elevated white blood cell count, unspecified; Z23 Encounter for immunization
CPT/HCPCS: 36415; 70450; 70496; 70498; 70544; 70547; 70553; 80053; 80061; 82728; 82948; 83036; 83540; 83550; 83735; 83880; 84100; 84439; 84443; 84484; 84703; 85025; 86592; 87804; 90471; 90732; 93005; 93306; 96361; 96372; 96374; 96376; 97116; 97162; 97530; 99285; A9579; G0378; G8978; G8979; J1644; J2405; J7040; Q9967